=== PATIENT | female | born 1955 | race Caucasian/White ===

== ENCOUNTER 2019-09-19 09:24 | Observation (INO) ==
[2019-09-19] MEDS ORDERED: Ondansetron 4 MG/2 ML VIAL IVP ONE (09:28)
[2019-09-19] MEDS ORDERED: 0.9 % Sodium Chloride 1,000 ML IVC ONE (09:29)
[2019-09-19 10:05] LABS: Basophils % 0.4 %; Eosinophils % 0.3 %; Hematocrit 42.2 % (35.3-44.9); Hemoglobin 13.5 g/dL (11.5-15.4); Immature Granulocytes % 0.4 % (0-4); Lymphocytes # 1.1 K/mcL (0.6-4.6); Lymphocytes % 10.9 %; Mean Corpuscular Hemoglobin 28.8 pg (28.0-33.3); Mean Corpuscular Volume 90.2 fL (83.0-100.0); Mean Platelet Volume 11.3 fL (9.4-12.4); Monocytes # 0.4 K/mcL (0.0-1.3); Monocytes % 4.2 %; Neutrophils # 8.6 K/mcL (1.6-8.9); Platelet Count 189 K/mcL (140-400); Red Blood Count 4.68 M/mcL (3.82-4.97); Red Cell Distribution Width 12.6 % (11.5-14.5); Segmented Neutrophils % 83.8 %; White Blood Count 10.3 K/mcL (4.3-11.1)
[2019-09-19 10:24] LABS: Alanine Aminotransferase 10 Units/L (7-52); Albumin 4.2 g/dL (3.5-5.7); Albumin/Globulin Ratio 1.5 (1.1-2.2); Alkaline Phosphatase 84 Units/L (34-104); Aspartate Amino Transferase 13 Units/L (13-39); BUN/Creatinine Ratio 18 (6-26); Bilirubin,Indirect 0.4 mg/dL (0.0-1.0); Bilirubin,Total 0.4 mg/dL (0.3-1.0); Blood Urea Nitrogen 20 mg/dL (8-23); Calcium 9.6 mg/dL (8.6-10.3); Carbon Dioxide 25 mEq/L (23-29); Chloride 106 mEq/L (98-107); Globulin 2.8 g/dL (2.4-3.5); Glucose 147 mg/dL (70-105); Lipase 11 Units/L (11-82); Osmolality,Calculated 301 (280-300); Potassium 3.6 mEq/L (3.5-5.1); Sodium 143 mEq/L (136-145); eGFR For African Americans > 60 (> 60); eGFR For Non-African Americans 50 (> 60)
[2019-09-19 11:35] LABS: Bilirubin,Urine Negative (Negative); Blood,Urine Negative (Negative); Clarity,Urine Clear (Clear); Color,Urine Yellow (Yellow); Glucose,Urine (UA) Normal (Normal); Ketones,Urine Negative (Negative); Leukocyte Esterase,Urine Small (Negative); Nitrite,Urine Negative (Negative); PH,Urine 6.5 pH Units (5.0-8.0); Protein,Urine Negative (Neg-Trace); Specific Gravity,Urine 1.018 (1.010-1.025); Urobilinogen,Urine Normal (Normal)
[2019-09-19 11:38] LABS: Bacteria,Urine Moderate per hpf (None-Few); Hyaline Casts,Urine None Seen per lpf (None-Few); RBC,Urine 0-3 per hpf (0-3); Squamous Epithelial Cell,Urine Many per lpf (None-Few)
[2019-09-19] MEDS ORDERED: *HR* Promethazine 25 MG/ML VIAL IVP ONE (12:13)
[2019-09-19] MEDS ORDERED: *HR* Promethazine 25 MG/ML VIAL ONE (12:14)
[2019-09-19] MEDS ORDERED: diazePAM 10 MG/2 ML SYRINGE IVP STA (12:59)
[2019-09-19] MEDS ORDERED: Naloxone 0.4 MG/ML INJ IVP PRN (13:58)
[2019-09-19] MEDS ORDERED: Ondansetron 4 MG/2 ML VIAL IVP PRN (13:58)
[2019-09-19] MEDS ORDERED: Dextrose Gel 15 GM/37.5 ML TUBE PO PRN ×2 (14:15)
[2019-09-19] MEDS ORDERED: *HR* Dextrose 50 % in Water (Syg) 50 ML SYRINGE IVP PRN (14:15)
[2019-09-19] MEDS ORDERED: D5% in Water 1,000 ML IVC PRN (14:15)
[2019-09-19] MEDS: 0.9 % Sodium Chloride 1,000 ML IVC SCH (15:06)
[2019-09-19 15:57] LABS: Estimated Average Glucose 148 mg/dl
[2019-09-19] MEDS: Insulin LISPRO 300 UNITS/3 ML VIAL SQ SCH (17:07)
[2019-09-19] MEDS ORDERED: Insulin LISPRO 300 UNITS/3 ML VIAL SQ SCH (21:00)
[2019-09-20] MEDS: 0.9 % Sodium Chloride 1,000 ML IVC SCH (05:42)
[2019-09-20 07:58] VITALS: BP 131/57
[2019-09-20] MEDS ORDERED: Aspirin 81 MG TAB.CHEW PO SCH (09:00)
[2019-09-20] MEDS ORDERED: Fluticasone Propionate Nasal 50 MCG/SPRAY BOTTLE NS SCH (09:00)
[2019-09-20] MEDS: Insulin LISPRO 300 UNITS/3 ML VIAL SQ SCH (10:09)
== END 2019-09-20 10:55 | disposition left against medical advice (07) ==
LOC: 3BNU 09:24 → EMEROOARM 09:24 → 3BNU 14:46
PROVIDERS: ADMIT Internal Medicine; ATTEND Internal Medicine